=== PATIENT | female | born 1940 | race Caucasian/White ===

== ENCOUNTER 2023-08-21 11:43 | Emergency (ER) | payer OTHER, SELFPAY ==
[2023-08-21 12:11] VITALS: BP 177/89
--- NOTE | 2023-08-21 13:46 | ED.MUSCINJ ---
HPI-Injury
General
Chief Complaint: Fall
Source: patient and spouse
Exam Limitations: none
Time Seen by Provider: 08/21/23 13:33
Nursing documentation reviewed up to this point in time: agreed with
Travel History
Have you had any contact with someone who has COVID-19?: No
Do you have any symptoms of coronavirus? Fever > 100 degrees, chills, cough, shortness of breath, sore throat, loss of taste or smell, muscle aches, or headache?: No
History of Present Illness-Injury
Is this injury a work related problem?: No
Is pt an associate of [facility]?: No
Initial Injury comments:
83-year-old female on [place] tripped getting out of her car details not entirely clear solar getting out of active car neck single no she was on the ground with people surrounding her giving her tissue for a bloody nose patient denies
chest pain or shortness of breath no palpitations, she has some pain in her nose left wrist left knee no abdominal pain no shortness of breath no pain in her hips
Past History
Past History
ED Past Medical History: Cancer, CVA, HTN and Hypercholesterolemia
ED Past Surgical History: Orthopedic and Other (Cataracts)
Social History
Tobacco: Non-smoker
Alcohol: None
Drug: None
Personal:
Living: with family
Employment: Retired
Family History
Family History: Other
Review of Systems
Review of Systems
All Other Systems: Not applicable
Constitutional: Denies fever or fatigue
EENT: Reports other (Bleeding from the nose)
Respiratory: Reports no symptoms
Cardiac: Reports no symptoms
ABD/GI: Reports no symptoms; Denies abdominal pain
Musculoskeletal: Reports joint pain (Mild left wrist and left knee pain)
Skin: Reports no symptoms
Neurological: Reports no symptoms; Denies dizzy or headache
Endocrine: Reports no symptoms
Phy Exam
Physical Exam
Physical Exam:
Physical Exam
General: Pleasant elderly female nontoxic
Neck: Bruising around the nose with some oozing from the left nare no septal hematoma seen
Heart: Rate
Lungs: no acute respiratory distress. clear bilaterally
Abdomen: Nontender
Neuro: alert and oriented. no focal neurological deficits
Skin: no rash
Psychiatric: cooperative
Extremities: Minimal pain in her left wrist strong radial pulse no pain with range of motion of her hips
Injury Course
Orders/Labs/Results
Orders:
Orders
08/21/23 12:17
CT Facial Bones W/o Iv Contras Urgent
Comment:
Reason For Exam: fall onto face, deformity to nose
CT Head W/o Iv Contrast Urgent
Comment:
Reason For Exam: fall onto face, deformity to nose
Cervical Spine wo Contrast CT [CT Cervical Spine W/o Iv Contr] Urgent
Comment:
Reason For Exam: fall onto face, deformity to nose
08/21/23 13:42
Wrist, Left 2 Views CR [CR Wrist - Left Min 2 Views] Urgent
Comment:
Reason For Exam: fall
08/21/23 13:43
Electrocardiogram (*1) Urgent
Reason for Study: Syncope
EKG- Treatment ONCE
Acetaminophen [Tylenol] 650 mg PO NOW STA
08/21/23 13:46
Knee, Left 1 or 2 Views [CR Knee - Left 1 Or 2 Views] Urgent
Comment:
Reason For Exam: fall
MDM/Problems Addressed
Differential Diagnosis Includes:
Slip and fall, syncope, wrist fracture, nasal fracture intracerebral hemorrhage
MDM/Problems Addressed:
Fall,
Chronic conditions affecting care: HTN and CAD
Acute Exacerbation and/or Progression of Chronic Illness: HTN and CAD
*Radiology
Radiology exam reviewed: radiology read reviewed
*Pulse Oximetry
Patient hypoxic: no
*EKG
Interpreted by ED Provider?: Yes
Interpretation: abnormal
Comparison EKG: no comparison EKG present
Heart Rate: 78
Rate: normal
Rhythm: sinus
Ischemia: non-specific ST changes
*Critical Care Note
Total Time (30-74mins, 75-104mins- exclusive of procedures): Not Applicable
Update Note
Update Note:
Patient looks well here, details of the fall are not entirely clear, will check an EKG, plain film of her wrist, and knee
4:10 PM images noted formal report pending will refer to on-call ENT for her nasal fracture
EKG noted
ED Attending Note
-
Portions of this chart may have been created with voice recognition software.� Occasional wrong word or��sound alike� substitutions may have occurred due to the inherent limitations of voice recognition software.
Discharge Plan
Departure
Instructions: Contusion (DC), Nose Fracture ED, Preventing falls in adults
Prescriptions:
No Action
atorvastatin 40 MG tablet
40 mg PO QPM Qty: 30 0RF
Brilinta 60 MG tablet
60 mg PO BID Qty: 60 0RF
Hold Instructions: Resume on 12/20/22.
meloxicam 15 mg tablet
15 mg PO DAILY
acetaminophen [Tylenol Extra Strength] 500 mg tablet
1,000 mg PO Q6H PRN (Reason: mild pain)
Rx Instructions:
DO NOT exceed >4000 mg daily.
sulfamethoxazole-trimethoprim [Bactrim DS] 800-160 mg tablet
1 tab PO BID 7 Days Qty: 14 0RF
Referrals:
Deyanira Torres DO [Family Provider] -
Chris Tee MD [Active] - Next open appointment
Activity Restrictions/Additional Instructions:
Ice to areas that hurt
Follow-up with Dr. Chris Tee ENT specialist
Interventions
Interventions:
ED- Fall Risk Assessment Last Done: 08/21/23 13:14
ED-Musculoskeletal Assessment Last Done: 08/21/23 13:14
ED- Neurological Assessment Last Done: 08/21/23 13:14
ED-Skin Assessment Last Done: 08/21/23 13:14
[2023-08-21] MEDS: TYLENOL 650 MG PO (13:49)
== END 2023-08-21 16:41 | disposition home or self-care (01) ==
LOC: EMR 11:43
PROVIDERS: EMERGENCY PHYSICIAN Emergency Medicine; FAMILY PHYSICIAN Family Medicine
DX: R04.0 Epistaxis (principal); S02.2XXA Fracture of nasal bones, initial encounter for closed fracture; S00.33XA Contusion of nose, initial encounter; M25.562 Pain in left knee; M25.532 Pain in left wrist; W01.0XXA Fall on same level from slipping, tripping and stumbling without subsequent striking against object, initial encounter; I25.10 Atherosclerotic heart disease of native coronary artery without angina pectoris; I10 Essential (primary) hypertension; E78.00 Pure hypercholesterolemia, unspecified; Z86.73 Personal history of transient ischemic attack (TIA), and cerebral infarction without residual deficits; Z85.828 Personal history of other malignant neoplasm of skin; Z85.810 Personal history of malignant neoplasm of tongue; Z79.02 Long term (current) use of antithrombotics/antiplatelets
CPT/HCPCS: 99284; 70450; 70486; 72125; 73100; 73560; 93005

== ENCOUNTER 2024-03-24 12:46 | Outpatient (RCR) | payer OTHER, SELFPAY | END 2024-03-24 23:59 | disposition home or self-care (01) | LOC: RST 12:46 | PROVIDERS: ATTENDING PHYSICIAN Psychiatry & Neurology Neurology; FAMILY PHYSICIAN Family Medicine | DX: R41.841 Cognitive communication deficit (principal); F01.50 Vascular dementia, unspecified severity, without behavioral disturbance, psychotic disturbance, mood disturbance, and anxiety; I69.328 Other speech and language deficits following cerebral infarction | CPT/HCPCS: 92507; 92523; 96125; 97129; 97130 ==

== ENCOUNTER → 2024-04-18 08:06 | Outpatient (REF) | payer MEDICARE, SELFPAY | LOC: RST 08:06 | PROVIDERS: ATTENDING PHYSICIAN Family Medicine | DX: R13.10 Dysphagia, unspecified (principal) | CPT/HCPCS: 74230; 92611 ==

== ENCOUNTER 2024-04-20 12:49 | Outpatient (RCR) | payer OTHER, SELFPAY | END 2024-04-20 23:59 | disposition home or self-care (01) | LOC: RST 12:49 | PROVIDERS: ATTENDING PHYSICIAN Psychiatry & Neurology Neurology; FAMILY PHYSICIAN Family Medicine | DX: F01.50 Vascular dementia, unspecified severity, without behavioral disturbance, psychotic disturbance, mood disturbance, and anxiety (principal); R41.841 Cognitive communication deficit; I69.328 Other speech and language deficits following cerebral infarction | CPT/HCPCS: 92507; 97129; 97130 ==

== ENCOUNTER 2024-04-29 13:09 | Outpatient (RCR) | payer OTHER, SELFPAY | END 2024-04-29 23:59 | disposition home or self-care (01) | LOC: RST 13:09 | PROVIDERS: ATTENDING PHYSICIAN Psychiatry & Neurology Neurology; FAMILY PHYSICIAN Family Medicine | DX: F01.50 Vascular dementia, unspecified severity, without behavioral disturbance, psychotic disturbance, mood disturbance, and anxiety (principal); R41.841 Cognitive communication deficit; I69.328 Other speech and language deficits following cerebral infarction | CPT/HCPCS: 92507 ==